=== PATIENT | female | born 1990 | race Caucasian/White ===

== ENCOUNTER 2017-11-30 21:20 | Outpatient (CLI) | payer OTHER | END 2017-11-30 21:21 | disposition critical access hospital (66) | LOC: EMS 21:20 | PROVIDERS: ATTEND Surgery | DX: O99.89 Other specified diseases and conditions complicating pregnancy, childbirth and the puerperium (principal); R07.9 Chest pain, unspecified ==

== ENCOUNTER 2017-11-30 21:44 | Emergency (ER) | payer OTHER ==
[2017-11-30 22:17] LABS: BASOPHILS % (AUTO) 0.3 %; EOSINOPHILS # (AUTO) 0.2 10^3/uL (0.0-0.7); EOSINOPHILS % (AUTO) 2.5 %; HGB - HEMOGLOBIN 10.4 g/dL (12.0-16.0); LYMPHOCYTES % (AUTO) 26.2 %; MEAN CORPUSCULAR HEMOGLOBIN 28.2 pg (27.0-31.0); MEAN CORPUSCULAR HGB CONC 33.7 g/dL (32.0-36.0); MEAN CORPUSCULAR VOLUME 83.6 fL (81.0-99.0); MEAN PLATELET VOLUME 7.8 fL (7.9-10.8); MONOCYTES # (AUTO) 0.4 10^3/uL (0.0-1.0); MONOCYTES % (AUTO) 5.7 %; NEUTROPHILS # (AUTO) 4.9 10^3/uL (1.5-6.6); NEUTROPHILS % (AUTO) 65.3 %; PLT - PLATELET COUNT 199 10^3/uL (130-450); RED BLOOD COUNT 3.71 10^6/uL (4.20-5.40); RED CELL DISTRIBUTION WIDTH 13.7 % (12.0-15.0); WHITE BLOOD COUNT 7.5 x10^3/uL (4.8-10.8)
[2017-11-30 22:29] LABS: ALBUMIN 3.5 g/dL (3.2-5.5); ALBUMIN/GLOBULIN RATIO 1.3 (1.0-2.2); BILIRUBIN,TOTAL 0.2 mg/dL (0.2-1.0); CALCIUM 8.7 mg/dL (8.5-10.3); CREATININE 0.5 mg/dL (0.4-1.0); TOTAL PROTEIN 6.3 g/dL (6.7-8.2)
--- NOTE | 2017-11-30 22:31 | ED Physician Documentation ---
PD HPI CHEST PAIN - Stated complaint Stated Complaint: CP, 16 WEEKS PREG, THYROID TUMOR - Chief complaint Chief Complaint: Cardiac - History obtained from History obtained from: Patient - History of Present Illness Timing - onset: Enter time (21:00), Yesterday Timing - onset during: Light activity Timing - details: Abrupt onset, Intermittant Quality: Pain Location: Left chest Radiation: Other (no radiation) Improved by: Nothing Worsened by: Other (no exacerbating factors) Associated symptoms: Shortness of air (mild). No: Diaphoresis, Nausea, Vomiting , Palpitations Similar symptoms before: Has not had sx before Recently seen: Not recently seen - Additional information Additional information: c/o episodic left chest pain since 9 PM last night, no apparent inciting, exacerbating, or ameliorating factors. Patient is 16 weeks . 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 Review of Systems Constitutional: reports: Reviewed and negative Cardiac: reports: Chest pain / pressure. denies: Palpitations, Pedal edema, Calf pain Respiratory: reports: Dyspnea. denies: Cough, Hemoptysis GI: reports: Reviewed and negative PD PAST MEDICAL HISTORY - Past Medical History Past Medical History: Yes Psych: Depression, Anxiety Other Past Medical History: Gall stones, thyroid cancer - Past Surgical History Past Surgical History: Yes /[employer]: section - Present Medications Home Medications: Ambulatory Orders Medication Instructions Recorded Confirmed Bupropion HCl [Bupropion HCl Sr] 1 tab PO DAILY 11/30/17 11/30/17 Sertraline HCl [Zoloft] 1 tab PO DAILY 11/30/17 11/30/17 - Allergies Allergies/Adverse Reactions: Allergies Allergy/AdvReac Type Severity Reaction Status Date / Time No Known Drug Allergies Allergy Verified 11/30/17 21:48 - Social History Does the pt smoke?: No Smoking Status: Never smoker Does the pt drink ETOH?: No Does the pt have substance abuse?: No - Immunizations Immunizations are current?: Yes PD ED PE NORMAL - Vitals Vital signs reviewed: Yes - General General: Alert and oriented X 3, No acute distress, Well developed/nourished - HEENT HEENT: Moist mucous membranes - Cardiac Cardiac: RRR, No murmur - Respiratory Respiratory: No respiratory distress, Clear bilaterally - Abdomen Abdomen: Soft, Non tender - Extremities Extremities: No edema Results - Vitals Vitals: Vital Signs - 24 hr 11/30/17 11/30/17 12/01/17 21:46 22:30 01:18 Temperature 36.7 C Heart Rate 98 78 72 Respiratory 18 18 16 Rate Blood Pressure 124/73 96/60 128/77 O2 Saturation 93 95 96 Oxygen O2 Source Room air - Labs Labs: Laboratory Tests 11/30/17 11/30/17 11/30/17 22:06 22:06 22:06 WBC 7.5 RBC 3.71 L Hgb 10.4 L Hct 31.0 L MCV 83.6 MCH 28.2 MCHC 33.7 RDW 13.7 Plt Count 199 MPV 7.8 L Neut # 4.9 Lymph # 2.0 Mccracken # 0.4 Eos # 0.2 Baso # 0.0 Absolute Nucleated RBC 0.00 Nucleated RBC % 0.0 Sodium 135 Potassium 3.5 Chloride 106 Carbon Dioxide 22 Anion Gap 7.0 BUN 9 Creatinine 0.5 Estimated GFR (MDRD) 148 Glucose 100 Calcium 8.7 Total Bilirubin 0.2 AST 15 ALT 10 Alkaline Phosphatase 32 L Troponin I < 0.04 Total Protein 6.3 L Albumin 3.5 Globulin 2.8 Albumin/Globulin Ratio 1.3 Lipase 42 - Rads (name of study) CT chest angio (PE study) Radiology: Prelim report reviewed, See rad report PD MEDICAL DECISION MAKING - ED course Complexity details: reviewed results, re-evaluated patient, considered differential, d/w patient ED course: patient has PE risk factors (, active malignancy). we discussed risks/ benefits of CT chest angio (risk emphasis on radiation exposure and benefit is that it would provide the most information regarding possible diagnoses including PE); she agrees with my recommendation to have this test performed. Result is unremarkable and she feels well, appears to be in NAD Departure - Departure Disposition: 01 Home, Self Care Clinical Impression: Chest pain, Condition: Good Instructions: ED Chest Pain Atypical Unkn Cause Discharge Date/Time: 12/01/17 01:18
[2017-11-30] MEDS ORDERED: IOPAMIDOL-300 100 ML VIAL ONE (23:14)
[2017-11-30] MEDS ORDERED: IOPAMIDOL-300 100 ML VIAL IVP ONE ×2 (23:42)
--- NOTE | 2017-12-01 00:03 | CT Preliminary Report ---
Exam: CT CHEST ANGIO (PE) IMPRESSION: 1. No acute pulmonary embolism. 2. No thoracic aortic dissection. 3. No focal infiltrate. 4. There is a 3.9 x 3.9 cm hypodensity within the left thyroid lobe. This could represent a cyst or m ass. [facility] SITE ID: [id number]
--- NOTE | 2017-12-01 00:03 | CT Report ---
EXAM: CT ANGIOGRAM CHEST EXAM DATE: 11/30/2017 11:47 PM. CLINICAL HISTORY: Chest pain. COMPARISON: None. TECHNIQUE: Routine helical imaging was performed through the chest in the pulmonary arterial phase. I V Contrast: 80 cc Isovue 300. Reconstructions: Coronal 3-D MIP reconstructions.Sagittal and coronal. In accordance with CT protocol optimization, one or more of the following dose reduction techniques w ere utilized for this exam: automated exposure control, adjustment of mA and/or KV based on patient s ize, or use of iterative reconstructive technique. FINDINGS: Pulmonary Arteries: Diagnostic quality: Adequate through the segmental arteries. No evidence for acute or chronic pulmona ry emboli. Lungs/Pleura: No consolidation, nodules, or edema. No effusions or pneumothorax. Mediastinum: There is a 3.9 x 3.9 cm hypodensity within the left thyroid lobe. Heart size is within n ormal limits. There are no enlarged thoracic lymph nodes. Thoracic Aorta: Unremarkable. Upper Abdomen: Unremarkable. Other: None. IMPRESSION: 1. No acute pulmonary embolism. 2. No thoracic aortic dissection. 3. No focal infiltrate. 4. There is a 3.9 x 3.9 cm hypodensity within the left thyroid lobe. This could represent a cyst or m ass. [facility] Referring Provider Line: [phone] SITE ID: [id number]
[2017-12-01 01:18] VITALS: BP 128/77
== END 2017-12-01 01:18 | disposition home or self-care (01) ==
LOC: ED 21:44
DX: R07.9 Chest pain, unspecified (principal); O99.282 Endocrine, nutritional and metabolic diseases complicating pregnancy, second trimester; E07.89 Other specified disorders of thyroid; Z3A.16 16 weeks gestation of pregnancy
CPT/HCPCS: 36415; 71275; 80053; 83690; 84484; 85025; 93005; 99283; 99284; Q9967